=== PATIENT | male | born 1965 | race African-American/Black ===

== ENCOUNTER 2018-12-19 06:06 | Observation (INO) ==
[2018-12-19] MEDS ORDERED: TORADOL IV ONE (06:28)
[2018-12-19] MEDS ORDERED: LABETALOL IV ONE ×2 (06:28→07:59)
[2018-12-19] MEDS ORDERED: DECADRON IM ONE (06:28)
--- NOTE | 2018-12-19 06:33 | PROVIDER DOCUMENTATION ---
HPI-General Adult - General Chief Complaint: Sore Throat Stated Complaint: SORE THROAT Time Seen by Provider: 12/19/18 06:12 Source: patient Allergies/Adverse Reactions: Patient Allergies Allergy/AdvReac Type Severity Reaction Status Date / Time No Known Allergies Allergy Verified 04/15/18 15:40 Home Medications: Home Medication List Medication Instructions Recorded Confirmed Last Taken Type Atorvastatin Calcium 10 mg PO DAILY 04/15/18 04/15/18 Unknown History Colchicine [Colcrys] 0.6 mg PO DAILY #60 tab 04/19/18 Unknown Rx Irbesartan [Avapro] 300 mg PO DAILY #120 tab 04/19/18 Unknown Rx Nebivolol [Bystolic] 20 mg PO BID #120 tab 04/19/18 Unknown Rx Nifedipine E.r. [Adalat cc] 90 mg PO DAILY #120 tab 04/19/18 Unknown Rx Spironolactone [Aldactone] 25 mg PO DAILY #120 tab 04/19/18 Unknown Rx - History of Present Illness -Gen Adult Nature of Presenting Problems: Pt presents with sore throat, started last night, sharp pain with swallowing but tolerating PO, pt at triage found to have HTN, pt takes daily meds for HTN but unsure of his normal BP, pt denies f/c, evans, cp, sob, cough, ap, n/v/d. Pt is lying in bed in no acute distress. Location of Pain/Injury: reports: other (throat) Pain Radiation: reports: no radiation Quality of Pain: reports: sharp Severity: reports: moderate Onset/Duration: reports: 4-6 hours ago Timing: reports: still present Context/Activities at Onset: reports: none Modifying Factors: improves with: nothing Associated Symptoms: reports: denies symptoms Similar Symptoms Previously?: No Recently seen or treated by another doctor?: No Review of Systems - Adult - REVIEW OF SYSTEMS - ADULT Constitutional: reports: no symptoms reported Eyes: reports: no symptoms reported Ears, Nose, Mouth & Throat: reports: see HPI Cardiovascular: reports: see HPI Respiratory: reports: no symptoms reported Gastrointestinal: reports: no symptoms reported Genitourinary: reports: no symptoms reported Musculoskeletal: reports: no symptoms reported Integumentary: reports: no symptoms reported Neurological: reports: no symptoms reported Psychiatric: reports: no symptoms reported Endocrine: reports: no symptoms reported Hematologic/Lymphatic: reports: no symptoms reported Allergic/Immunologic: reports: no symptoms reported All Other Systems: Reviewed and Negative Past History - Adult - PAST MEDICAL HISTORY-ADULT Review of Records: reports: Old Records Reviewed, Medications Reviewed, Social history reviewed & non-contributory. Major Childhood Illnesses: reports: denies history Cardiovascular: reports: CHF, HTN, hyperlipidemia Respiratory: reports: asthma Gastrointestinal: reports: denies history Obstetrical/Gynecological: reports: denies history Genitourinary: reports: denies history Musculoskeletal: reports: arthritis (gout) Neurological: reports: denies history Endocrine/Immune: reports: denies history Other Conditions: reports: denies history Additional History: L eye damaged as child - PRIOR SURGERIES/PROCEDURES Surgical/Procedure History: reports: other (left eye) - IMMUNIZATION STATUS Childhood Immunizations: See Nurse Assessment Flu Vaccine: See Nurse Assessment - FAMILY HISTORY Family History: reviewed, not pertinent Physical Exam-General - PHYSICAL EXAM-ADULT Initial Vital Signs Reviewed: Yes - CONSTITUTIONAL General Appearance: appears well - EYES Eyes: PERRL/EOMI - HEAD, EARS, NOSE, MOUTH & THROAT HENMT: normocephalic/atraumatic, pharyngeal erythema - NECK Neck: non-tender, normal inspection - RESPIRATORY Respiratory: lungs clear, no respiratory distress, no accessory muscle use - CARDIOVASCULAR Cardiovascular: regular rate, rhythm - GASTROINTESTINAL (ABDOMEN) Abdominal Exam: normal bowel sounds, non tender, soft - LYMPHATIC Lymphatic: no adenopathy - MUSCULOSKELETAL Back Exam: normal inspection Extremity: normal range of motion - SKIN Integumentary: normal color - NEUROLOGIC Neurologic: grossly normal - PSYCHIATRIC Psych/Mental Status: normal mood/affect Progress - PLAN OF CARE/RESULTS Progress/Plan/Lab Results: Vital Signs - 8 hr 12/19/18 06:10 Temperature 100.5 F H Pulse Rate 89 Respiratory Rate 18 Blood Pressure 220/140 O2 Sat by Pulse Oximetry 96 Orders Category Date Time Status Nursing- Obtain EKG ONCE Care 12/19/18 06:29 Ordered cxr [CHEST-1 VIEW] [RAD] Stat Exams 12/19/18 06:29 Ordered CBC WITH ELECTRONIC DIFF [HEME] Stat Lab 12/19/18 06:28 Uncollected COMPREHENSIVE METABOLIC PANEL [CHEM] Stat Lab 12/19/18 06:28 Uncollected DIRECT STREP Stat Lab 12/19/18 06:21 Ordered TROPONIN T Stat Lab 12/19/18 06:28 Uncollected Dexamethasone [Decadron] Med 12/19/18 06:28 Once 10 mg IM NOW ONE Ketorolac [Toradol] Med 12/19/18 06:28 Once 30 mg IV NOW ONE Labetalol Med 12/19/18 06:28 Once 10 mg IV NOW ONE EKG [EKG] Stat Ther 12/19/18 06:29 Ordered Result Diagrams: 12/19/18 06:43 12/19/18 06:43 - CONSULTS/PCP/HOSPITALIST Notification #1 *Consult/PCP/Hospitalist*: Tania for Hospitalist Time Discussed: 07:53 Reason/Comments: malignant HTN Consult Disposition: Will see in ED, Admit - CHANGE OF SHIFT REPORT (ED Provider) 1 Report Given and Care Transferred to:: Dr. Jefferson Time of Transfer: 07:00 Departure - Departure Date of Disposition Decision: 12/19/18 Time of Disposition Decision: 07:53 DIAGNOSIS: Hypertensive renal disease, Uncontrolled hypertension, Heart failure, Pharyngitis Disposition: ADMITTED INPATIENT 09 Certified Medical Emergency: Emergent Condition: Fair Referrals and Follow-Ups: Negar Humphreys MD [Primary Care Provider] - - Critical Care Note This patient required my direct & personal management of CC.: No Attestation - Physician/ LIANG Attestation Patient care was provided by Advanced Practice Provider:: No The physician spent face to face time with patient:: Yes Advanced Practice Provider documentation review:: Supervising physician onsite and consulted in the evaluation and care of this patient. The physician did have a face to face encounter with the patient.
--- NOTE | 2018-12-19 06:52 | EKG Report ---
Test Performed on : 12/19/2018 06:45:52 AM Test Reason : chest pain Blood Pressure : / mmHG Vent. Rate : 079 BPM Atrial Rate : 079 BPM P-R Int : 160 ms QRS Dur : 094 ms QT Int : 408 ms P-R-T Axes : 060 004 096 degrees QTc Int : 467 ms Normal sinus rhythm. Biatrial enlargement Left ventricular hypertrophy T wave abnormality, consider lateral ischemia Prolonged QT Abnormal ECG When compared with ECG of 10-SEP-2017 20:25, ST no longer depressed in Anterior leads T wave inversion less evident in Lateral leads Unconfirmed Result
--- NOTE | 2018-12-19 07:04 | Diag Imaging Result Doc PS360 ---
EXAM: CHEST-1 VIEW HISTORY: chest pain TECHNIQUE: Chest single view COMPARISON: 04/15/2018 FINDINGS: The lungs are well expanded. The heart is not enlarged. The vessels are not distended. There are no infiltrates. No effusion identified. IMPRESSION: Negative exam. Electronically signed by Juan Millan 12/19/2018 7:02 AM
[2018-12-19 07:06] LABS: BASO# 0.02 X1000 (0.0-0.2); BASO% 0.1 % (0.0-0.8); EOS# 0.02 X1000 (0.0-0.7); EOS% 0.1 % (0.0-10.0); HEMATOCRIT 41.9 % (42.0-52.0); HEMOGLOBIN 14.7 g/dL (14.0-18.0); IMM GRAN# 0.03 X1000 (0.0-0.04); IMM GRAN% 0.2 % (0.0-0.5); LYMPH# 0.98 X1000 (1.2-3.4); LYMPH% 6.8 % (20.5-51.1); MCH 26.8 PG (27-31); MCHC 35.1 g/dL (33-37); MCV 76.5 FL (81-99); MONO# 0.92 X1000 (0.11-0.59); MONO% 6.4 % (1.7-9.3); NEUT# 12.34 X1000 (1.4-6.5); NEUT% 86.4 % (42.2-75.2); PLT 173 X1000 (130-400); RBC 5.48 XMIL (4.7-6.1); RDW 14.5 % (11.5-14.5); WBC 14.31 X1000 (4.8-10.8)
[2018-12-19 07:16] LABS: ALB/GLOB RATIO 1.6; ALBUMIN 4.6 g/dL (3.5-5.0); CREATININE 1.9 mg/dL (0.7-1.2); POTASSIUM 4.2 mmol/L (3.5-5.1); TOTAL BILIRUBIN 1.27 mg/dL (0.20-1.00); TOTAL PROTEIN 7.4 g/dL (6.3-8.3)
[2018-12-19] MEDS ORDERED: TYLENOL PO PRN (08:00)
[2018-12-19] MEDS ORDERED: CARDENE 20 MG/NS 20 MG/200 ML PIGGYBACK IV SCH (08:00)
[2018-12-19] MEDS ORDERED: ZOFRAN IV PRN (08:00)
[2018-12-19 09:01] LABS: URINE SOURCE CLEAN CATCH
[2018-12-19 09:14] LABS: BILIRUBIN URINE NEGATIVE (NEGATIVE); BLOOD URINE TRACE (NEGATIVE); COLOR YELLOW; GLUCOSE URINE NEGATIVE (NEGATIVE); KETONE URINE NEGATIVE (NEGATIVE); LEUKOCYTES URINE NEGATIVE (NEGATIVE); NITRITE URINE NEGATIVE (NEGATIVE); PROTEIN URINE 300 mg/dL (NEGATIVE); SP GRAVITY URINE 1.015; TURBIDITY URINE CLEAR (CLEAR); UROBILINOGEN URINE NORMAL (NORMAL)
[2018-12-19 09:16] LABS: UR EPITHELIAL CELLS <10 /HPF (<10); URINE BACTERIA NEGATIVE /HPF; URINE RBC <10 /HPF (<10); URINE WBC <10 /HPF (<10)
[2018-12-19] MEDS: BYSTOLIC PO SCH ×2 (09:31→20:47)
[2018-12-19] MEDS: AVAPRO PO SCH (09:31)
[2018-12-19] MEDS: ADALAT CC PO SCH (09:31)
[2018-12-19] MEDS: ALDACTONE PO SCH (09:31)
[2018-12-19] MEDS: COLCRYS PO SCH (09:32)
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
[2018-12-19] MEDS ORDERED: APRESOLINE IV PRN (11:47)
[2018-12-19] MEDS: HYDROCHLOROTHIAZIDE PO SCH (12:11)
[2018-12-19] MEDS: HEPARIN SUBQ SCH (20:47)
[2018-12-19] MEDS ORDERED: LIPITOR PO SCH (21:00)
[2018-12-20 07:12] LABS: BASO# 0.01 X1000 (0.0-0.2); BASO% 0.1 % (0.0-0.8); HEMATOCRIT 41.5 % (42.0-52.0); HEMOGLOBIN 14.6 g/dL (14.0-18.0); IMM GRAN# 0.04 X1000 (0.0-0.04); IMM GRAN% 0.2 % (0.0-0.5); LYMPH# 0.81 X1000 (1.2-3.4); LYMPH% 4.8 % (20.5-51.1); MCH 26.8 PG (27-31); MCHC 35.2 g/dL (33-37); MCV 76.3 FL (81-99); MONO# 1.08 X1000 (0.11-0.59); MONO% 6.4 % (1.7-9.3); MPV 11.4 FL (7.4-10.4); NEUT% 88.5 % (42.2-75.2); PLT 195 X1000 (130-400); RBC 5.44 XMIL (4.7-6.1); RDW 14.3 % (11.5-14.5); WBC 16.84 X1000 (4.8-10.8)
[2018-12-20 07:24] LABS: INR 1.06; PROTIME 13.9 Seconds (11.0-16.0); PTT 28.6 Seconds (22.3-41.8)
[2018-12-20 07:31] LABS: ALB/GLOB RATIO 1.1; ALBUMIN 4.2 g/dL (3.5-5.0); CALCIUM 9.2 mg/dL (8.8-10.2); CREATININE 2.6 mg/dL (0.7-1.2); MAGNESIUM 2.2 mg/dL (1.5-2.7); POTASSIUM 4.5 mmol/L (3.5-5.1); TOTAL BILIRUBIN 0.91 mg/dL (0.20-1.00); TOTAL PROTEIN 7.9 g/dL (6.3-8.3)
[2018-12-20 07:38] VITALS: BP 155/92
[2018-12-20] MEDS: BYSTOLIC PO SCH (08:47)
[2018-12-20] MEDS: HYDROCHLOROTHIAZIDE PO SCH (08:47)
[2018-12-20] MEDS: AVAPRO PO SCH (08:47)
[2018-12-20] MEDS: ADALAT CC PO SCH (08:47)
[2018-12-20] MEDS: ALDACTONE PO SCH (08:47)
[2018-12-20] MEDS: COLCRYS PO SCH (08:48)
[2018-12-20] MEDS: HEPARIN SUBQ SCH (08:48)
[2018-12-20 10:02] LABS: BANDS 2 % (0-1); LYMPHS 2 % (21-51); MONO 6 % (1-9); SEGS 90 % (42-75)
--- NOTE | 2018-12-20 10:40 | DISCHARGE SUMMARY ---
ADMISSION DATE: 12/19/2018 DISCHARGE DATE: 12/20/2018 ADMISSION DIAGNOSES: 1. Uncontrolled hypertensive urgency without heart failure. 2. Chronic systolic congestive heart failure. No acute exacerbation. 3. History of gout. 4. Hyperlipidemia. 5. Chronic kidney disease stage 3, stable. 6. Tobacco abuse. Smokeless tobacco. DISCHARGE DIAGNOSES: 1. Uncontrolled hypertensive urgency without heart failure, resolved. 2. Chronic systolic congestive heart failure. Stable. 3. History of gout. 4. Hyperlipidemia. 5. History of gout. 6. Chronic kidney disease stage 3, now with acute injury, likely secondary to receiving Toradol in the ER and aggressive fluid hydration. Recommended to the patient. 7. Tobacco abuse. Smokeless tobacco. Cessation discussed. 8. Likely pharyngitis which was viral in nature. He did have a white blood cell count and a sore throat and fever. He will go home with azithromycin. Strep and influenza were negative. Was afebrile during his stay. White count did go up, though, from 14 to 16. CONSULTATIONS: None. SURGERIES AND PROCEDURES: None. HOSPITAL COURSE: Mr. Jerad Rashid is a 53-year-old male, presented with complaints of sore throat, was found to be hypertensive, sent to ICU, antihypertensives given with resolution of severe hypertension. Transfer to the floor. He did have an increase in his white blood cell count, so he will go home with azithromycin. It is noted that he has a history of chronic kidney disease. It does look like he has had a mild acute HIT after receiving Toradol in the ER, so was advised to drink some fluids to help flush his kidneys. He will go home today. DISCHARGE VITAL SIGNS: Temperature 97.6 degrees, heart rate 61, respiratory rate 17, blood pressure 155/92, O2 saturation 98% on room air. DISCHARGE LAB DATA: His white blood cells are 16,000, hemoglobin 14, hematocrit 41, platelet count 195,000. INR is 1.06. PTT is 28.6. Sodium 133, potassium 4.5, BUN is 44, creatinine is 2.6, glucose 157, magnesium 2.2, bilirubin 0.91, AST is 11, ALT is 12. CK is 221. Troponin less than 0.01. ProBNP is 529. Albumin 4.2. TSH is 0.78. Lactate was 1.1. PERTINENT IMAGING: Chest x-ray negative exam. EKG normal sinus rhythm, rate 79, QTC is 467. DIET: Heart healthy. DISCHARGE ACTIVITY: As tolerated. DISCHARGE PHYSICIAN FOLLOWUP: Dr. Humphreys. DISCHARGE INSTRUCTIONS: The patient was advised to take his blood pressure medications as prescribed, to check his blood pressure in the mornings and in the evenings so he can develop a log to take back to his primary care provider. He is instructed to take his antibiotics, and due to the elevation in his creatinine, advised to drink fluids to flush his kidneys. He will need to follow up with his primary care provider in at least 2 weeks to have his kidney function checked. DISCHARGE DISPOSITION: Home. Dictated by ADRIANA Blair for Dmitri Tran MD Addendum: Patient seen and examined by myself. Agree with ADRIANA note. It reflects my assessment and plan. Patient is being discharged in stable condition. We have added Amlodipine to his current medications and will be seen by PCP in a week. cc: ADRIANA Blair MD [facility]
--- NOTE | 2018-12-20 10:49 | DISCHARGE SUMMARY ---
ADMISSION DATE: 12/19/2018 DISCHARGE DATE: ADDENDUM: DISCHARGE MEDICATIONS: 1. Atorvastatin 10 mg p.o. nightly. 2. Bystolic once daily 10 mg. 3. Irbesartan/hydrochlorothiazide 1 tablet p.o. daily. 4. Norvasc 10 mg p.o. nightly. 5. Azithromycin 500 mg p.o. daily for 5 days. Dictated by ADRIANA Blair for Dmitri Tran MD cc: ADRIANA Blair MD
--- NOTE | 2018-12-20 14:39 | EKG Report ---
Test Performed on : 12/20/2018 05:57:01 AM Test Reason : htn Blood Pressure : / mmHG Vent. Rate : 063 BPM Atrial Rate : 063 BPM P-R Int : 180 ms QRS Dur : 100 ms QT Int : 456 ms P-R-T Axes : 062 024 157 degrees QTc Int : 466 ms Normal sinus rhythm. Voltage criteria for left ventricular hypertrophy T wave abnormality, consider lateral ischemia Prolonged QT Abnormal ECG When compared with ECG of 19-DEC-2018 06:45, (Unconfirmed) T wave inversion more evident in Lateral leads Confirmed by Javi NIELSEN, Kamilah Ashby ([id number]) on 12/22/2018 12:05:46 PM
--- NOTE | 2018-12-20 22:12 | ECHO REPORT ---
ORDER DATE: 12/19/2018 MEASUREMENTS: Septal thickness 1.5, left ventricular internal diameter in diastole 5.4, posterior wall thickness 1.3. Aortic root 3.6, left atrium 4.0. SUMMARY: 1. Fair quality study. Intravenous echo contrast agent Optison was utilized to enhance endocardial definition. 2. Aortic valve is without evidence of structural abnormality and opens adequately on 2- dimensional images. Peak gradient across aortic valve is 11 mmHg. Mitral, tricuspid, and pulmonic valves are without evidence of structural abnormality with trace tricuspid regurgitation and trace pulmonic insufficiency. The aortic root is normal in size. 3. Normal left ventricular chamber size with mild concentric left hypertrophy is demonstrated. Estimated left ejection fraction is approximately 60%. No regional wall motion abnormalities evident. Doppler suggests grade 1 left ventricular diastolic dysfunction. Left atrium is borderline enlarged. Right atrium, right ventricle are normal in size with grossly preserved right ventricular systolic function. 4. No pericardial effusion. 5. Appearance of inferior vena cava suggests normal central venous pressure. cc: MD Tania Valdovinos CRNP
== END 2018-12-20 11:10 | disposition home or self-care (01) ==
LOC: ED 06:06 → ICU 06:07 → INTOOBSV 06:07 → 2N 16:32
PROVIDERS: ATTEND Internal Medicine